=== PATIENT | male | born 1990 | race Caucasian/White ===

== ENCOUNTER 2020-01-15 09:05 | Emergency (ER) | payer BC ==
[~2020-01-15] VITALS: Ht 177.8 cm; Wt 95.5 kg
[2020-01-15 09:18] VITALS: BP 130/88; TEMP 98.3
[2020-01-15 10:53] VITALS: PULSE 66
== END 2020-01-15 10:52 | disposition home or self-care (01) ==
LOC: COL.ER 09:05
DX: R13.10 Dysphagia, unspecified (principal)

== ENCOUNTER 2024-04-15 17:06 | Emergency (ER) | payer BC ==
[~2024-04-15] VITALS: Ht 177.8 cm; Wt 104.5 kg
[2024-04-15 17:10] VITALS: BP 139/91; PULSE 75; TEMP 98.2
== END 2024-04-15 17:38 | disposition home or self-care (01) ==
LOC: COL.ER 17:06
DX: S06.0X0A Concussion without loss of consciousness, initial encounter (principal); W22.8XXA Striking against or struck by other objects, initial encounter; Y99.0 Civilian activity done for income or pay